=== PATIENT | male | born 1950 | race Caucasian/White ===

== ENCOUNTER 2017-05-09 12:56 | Inpatient (IN) ==
[2017-05-09] MEDS ORDERED: ONDANSETRON 4 MG/2 ML VIAL IV PRN ×2 (14:32→17:30)
[2017-05-09] MEDS ORDERED: SODIUM CHLORIDE 0.9% 1,000 ML IV STA (14:32)
[2017-05-09 14:58] LABS: Basophils # 0.1 10*3/uL (0.0-0.2); Basophils % 1.4 % (0.0-0.8); Eosinophils # 0.4 10*3/uL (0.0-0.87); Hematocrit 44.5 VOL% (42.0-52.0); Hemoglobin 15.5 GM/DL (14.0-18.0); Immature Granulocytes % 5.4 %; Immature Granulocytes Absolute 0.38 #; Lymphocytes # 1.7 10*3/uL (1.4-4.0); Lymphocytes % 24.6 % (21.2-54.2); Mean Corpuscular HGB Conc 34.8 GM/DL (32-36); Mean Corpuscular Hemoglobin 29 PG (27-34); Mean Corpuscular Volume 84.4 FL (87-102); Mean Platelet Volume 9.3 FL (9.6-12.0); Monocytes # 0.7 10*3/uL (0.11-0.8); Monocytes % 10.4 % (1.7-12.7); Neutrophils # 3.7 10*3/uL (1.4-7.4); Neutrophils % 53.2 % (38.7-73.9); Platelet Count 243 T/CUMM (130-400); Red Blood Count 5.27 MC/CUMM (3.8-5.5); Red Cell Distribution Width 13.3 % (9.3-17.3)
[2017-05-09 15:37] LABS: Alanine Aminotransferase 54 U/L (16-61); Albumin 3.5 G/DL (3.4-5.0); Alkaline Phosphatase 73 U/L (45-117); Aspartate Amino Transferase 56 U/L (0-37); Bilirubin,Total < 0.39 MG/DL (0.2-1.0); Blood Urea Nitrogen 22 MG/DL (7-18); Calcium 8.8 MG/DL (8.5-10.1); Glucose 95 MG/DL (74-106); Osmolality,Calculated 266.5 MOS/KG (273-304); Potassium 5.3 MMOL/L (3.5-5.1); Sodium 132 MMOL/L (136-145); Total Protein 7.2 G/DL (6.4-8.3)
[2017-05-09 15:44] LABS: Free T4 (Free Thyroxine) 1.66 NG/DL (0.76-1.46); Thyroid Stimulating Hormone 2.09 uIU/ml (0.358-3.74)
[2017-05-09 15:45] LABS: Apearance,Urine CLEAR (Clear); Bilirubin,Urine Negative (Negative); Blood, Urine Negative (Negative); Glucose,Urine (UA) Negative (Negative); Ketones,Urine Negative (Negative); Mucus,Urine Occasional /LPF (Occasional); Nitrite,Urine Negative (Negative); Protein,Urine Negative; RBC,Urine <1 /HPF (0-4); Urine Color Yellow (Yellow); Urine Specific Gravity 1.024 (1.001-1.035); Urine Urobilinogen < 2.0 EU/DL (0.2-1.0); WBC,Urine 1 /HPF (0-6)
[2017-05-09 15:48] LABS: Barbiturates Screen,Urine Negative (Negative); Benzodiazepines Screen,Urine Positive (Negative); Cannabinoid Screen,Urine Negative (Negative); Opiate Screen,Urine Negative (Negative); Phencyclidine Screen,Urine Negative (Negative)
[2017-05-09] MEDS ORDERED: MORPHINE 2 MG/1 ML SYRINGE IV PRN (17:30)
[2017-05-09] MEDS ORDERED: PIPERACILLIN/TAZOBACTAM 3,375 MG in SODIUM CHLORIDE 0.9% 100 ML IV STA (17:43)
[2017-05-09] MEDS ORDERED: PIPERACILLIN/TAZOBACTAM 3,375 MG in SODIUM CHLORIDE 0.9% 100 ML IV SCH (18:00)
[2017-05-09] MEDS ORDERED: metroNIDAZOLE 500 MG/100 ML PREMIX IV ONE (18:13)
[2017-05-09] MEDS: metroNIDAZOLE INJ 500 MG in PREMIX 1 EACH IV SCH (18:21)
[2017-05-09 20:35] LABS: Burr Cells Few; Platelet Estimate Normal; Poikilocytosis Slight
[2017-05-09] MEDS: CIPROFLOXACIN INJ 400 MG in PREMIX 1 EACH IV SCH (21:22)
[2017-05-09] MEDS: ENOXAPARIN 40 MG/0.4 ML SYRINGE SUBCUT SCH (21:23)
[2017-05-09] MEDS: HYDROCORTISONE 100 MG VIAL IV SCH (21:23)
[2017-05-09] MEDS: SODIUM CHLORIDE 0.45% 1,000 ML IV SCH (21:24)
[2017-05-09] MEDS ORDERED: diphenhydrAMINE CAP 50 MG CAPSULE PO PRN (21:54)
[2017-05-10] MEDS: metroNIDAZOLE INJ 500 MG in PREMIX 1 EACH IV SCH ×3 (00:02→12:42)
[2017-05-10] MEDS: SODIUM CHLORIDE 0.45% 1,000 ML IV SCH ×3 (02:58→17:02)
[2017-05-10] MEDS: HYDROCORTISONE 100 MG VIAL IV SCH ×3 (03:59→20:30)
[2017-05-10 06:32] LABS: Basophils # 0.1 10*3/uL (0.0-0.2); Basophils % 0.6 % (0.0-0.8); Eosinophils # 0.1 10*3/uL (0.0-0.87); Eosinophils % 0.7 % (0.00-10.9); Hematocrit 41.3 VOL% (42.0-52.0); Hemoglobin 14.4 GM/DL (14.0-18.0); Immature Granulocytes % 3.9 %; Immature Granulocytes Absolute 0.33 #; Lymphocytes # 0.9 10*3/uL (1.4-4.0); Lymphocytes % 10.6 % (21.2-54.2); Mean Corpuscular HGB Conc 34.9 GM/DL (32-36); Mean Corpuscular Hemoglobin 29 PG (27-34); Mean Corpuscular Volume 83.9 FL (87-102); Mean Platelet Volume 9.4 FL (9.6-12.0); Monocytes # 0.4 10*3/uL (0.11-0.8); Monocytes % 5.2 % (1.7-12.7); Neutrophils # 6.7 10*3/uL (1.4-7.4); Platelet Count 257 T/CUMM (130-400); Red Blood Count 4.92 MC/CUMM (3.8-5.5); Red Cell Distribution Width 13.1 % (9.3-17.3); White Blood Count 8.5 T/CUMM (4-12)
[2017-05-10 07:07] LABS: Alanine Aminotransferase 59 U/L (16-61); Albumin 2.8 G/DL (3.4-5.0); Alkaline Phosphatase 60 U/L (45-117); Aspartate Amino Transferase 58 U/L (0-37); Bilirubin,Total < 0.39 MG/DL (0.2-1.0); Calcium 8.2 MG/DL (8.5-10.1); Total Protein 5.8 G/DL (6.4-8.3)
[2017-05-10 07:08] LABS: Blood Urea Nitrogen 14 MG/DL (7-18); Glucose 114 MG/DL (74-106); Osmolality,Calculated 274.8 MOS/KG (273-304); Potassium 4.4 MMOL/L (3.5-5.1); Sodium 137 MMOL/L (136-145)
[2017-05-10] MEDS ORDERED: LINACLOTIDE 145 MCG CAPSULE PO SCH (09:00)
[2017-05-10] MEDS: CIPROFLOXACIN INJ 400 MG in PREMIX 1 EACH IV SCH (09:18)
[2017-05-10] MEDS ORDERED: BUPRENORPHINE HCL 8 MG SL SCH (09:30)
[2017-05-10] MEDS ORDERED: AMPHETAMINE PO SCH (09:30)
[2017-05-10] MEDS ORDERED: DEXTROAMPHETAMINE PO SCH (09:30)
[2017-05-10] MEDS ORDERED: HYDROCORTISONE 10 MG TABLET PO SCH (09:30)
[2017-05-10] MEDS: CITALOPRAM 20 MG TABLET PO SCH (10:20)
[2017-05-10] MEDS: VALSARTAN 160 MG TABLET PO SCH (10:20)
[2017-05-10] MEDS: buPROPion SR 150 MG TABLET PO SCH (10:20)
[2017-05-10] MEDS: amLODIPine 5 MG TABLET PO SCH (10:21)
[2017-05-10] MEDS: LEVOTHYROXINE 100 MCG TABLET PO SCH (10:21)
[2017-05-10] MEDS: PANTOPRAZOLE 40 MG TABLET PO SCH (10:21)
[2017-05-10] MEDS: busPIRone 15 MG TABLET PO SCH (15:36)
[2017-05-10] MEDS: ACETAMINOPHEN 325 MG TABLET PO PRN ×2 (17:18→23:52)
[2017-05-10] MEDS ORDERED: PIPERACILLIN/TAZOBACTAM 3,375 MG in SODIUM CHLORIDE 0.9% 100 ML IV SCH (18:00)
[2017-05-10] MEDS: ENOXAPARIN 40 MG/0.4 ML SYRINGE SUBCUT SCH (20:30)
[2017-05-10] MEDS ORDERED: BACLOFEN 10 MG TABLET PO SCH (21:00)
[2017-05-10] MEDS ORDERED: ALPRAZolam 0.5 MG TABLET PO SCH (21:00)
[2017-05-10] MEDS ORDERED: NEBIVOLOL 10 MG TABLET PO SCH (21:00)
[2017-05-10] MEDS ORDERED: ASENAPINE MALEATE 5 MG SL SCH (21:00)
[2017-05-11] MEDS: busPIRone 15 MG TABLET PO SCH ×2 (01:04→09:51)
[2017-05-11] MEDS: buPROPion SR 150 MG TABLET PO SCH ×2 (01:04→09:50)
[2017-05-11] MEDS: SODIUM CHLORIDE 0.45% 1,000 ML IV SCH ×2 (02:07→09:30)
[2017-05-11] MEDS: HYDROCORTISONE 100 MG VIAL IV SCH ×2 (04:56→13:00)
[2017-05-11] MEDS: VALSARTAN 160 MG TABLET PO SCH (09:50)
[2017-05-11] MEDS: PANTOPRAZOLE 40 MG TABLET PO SCH (09:51)
[2017-05-11] MEDS: LEVOTHYROXINE 100 MCG TABLET PO SCH (09:51)
[2017-05-11] MEDS: amLODIPine 5 MG TABLET PO SCH (09:51)
[2017-05-11] MEDS: CITALOPRAM 20 MG TABLET PO SCH (09:54)
[2017-05-11 11:27] VITALS: BP 126/73
== END 2017-05-11 15:00 | disposition home or self-care (01) | DRG 394 ==
LOC: N.ED 12:56 → N.EDINP 17:30
PROVIDERS: ADMIT Hospitalist; ATTEND Hospitalist